=== PATIENT | female | born 1995 | race Caucasian/White ===

== ENCOUNTER 2017-03-12 21:07 | Emergency (ER) | payer SELFPAY ==
[~2017-03-12] VITALS: Ht 167.6 cm; Wt 77.9 kg
[~2017-03-12 21:07] MED LIST: MOTRIN400 MG PO
[2017-03-12 22:58] VITALS: BP 104/63
== END 2017-03-12 22:59 | disposition home or self-care (01) ==
LOC: EME 21:07
DX: F41.0 Panic disorder [episodic paroxysmal anxiety] (principal); R07.9 Chest pain, unspecified
CPT/HCPCS: 93005; 99281; 99284

== ENCOUNTER 2017-07-04 12:49 | Emergency (ER) | payer OTHER ==
[~2017-07-04] VITALS: Ht 165.1 cm; Wt 74.5 kg
[2017-07-04] MEDS ORDERED: FLEXERIL10 MG PO (15:40)
[2017-07-04] MEDS ORDERED: LIDODERM 5% P1 PATCH TD (15:40)
[2017-07-04] MEDS ORDERED: MOTRIN800 MG PO (15:40)
[2017-07-04 16:29] VITALS: BP 131/82
== END 2017-07-04 16:30 | disposition home or self-care (01) ==
LOC: EME 12:49
DX: M54.41 Lumbago with sciatica, right side (principal); W18.30XA Fall on same level, unspecified, initial encounter
CPT/HCPCS: 72100; 99281; 99284